=== PATIENT | female | born 1945 | race Caucasian/White ===

== ENCOUNTER 2021-10-17 18:07 | Observation (INO) ==
[2021-10-17] MEDS ORDERED: Ondansetron 4 MG/2 ML VIAL IVP ONE (18:38)
[2021-10-17] MEDS ORDERED: 0.9 % Sodium Chloride 1,000 ML IVC ONE (18:38)
[2021-10-17 18:58] LABS: Basophils % 0.4 %; Eosinophils # 0.1 K/mcL (0.0-0.6); Eosinophils % 0.7 %; Immature Granulocytes % 0.5 % (0-4); Lymphocytes # 1.5 K/mcL (0.6-4.6); Lymphocytes % 13.8 %; Mean Corpuscular HGB Conc 33.3 g/dL (31.6-35.5); Mean Corpuscular Hemoglobin 31.5 pg (28.0-33.3); Mean Corpuscular Volume 94.4 fL (83.0-100.0); Mean Platelet Volume 9.4 fL (9.4-12.4); Monocytes # 0.7 K/mcL (0.0-1.3); Monocytes % 6.8 %; Neutrophils # 8.3 K/mcL (1.6-8.9); Platelet Count 429 K/mcL (140-400); Red Cell Distribution Width 11.6 % (11.5-14.5); Segmented Neutrophils % 77.8 %; White Blood Count 10.7 K/mcL (4.3-11.1)
[2021-10-17 19:17] LABS: Potassium 3.4 mEq/L (3.5-5.1)
[2021-10-18] MEDS ORDERED: *HR* Promethazine 25 MG/ML VIAL IM PRN (00:11)
[2021-10-18] MEDS ORDERED: Ondansetron ODT 4 MG TAB.RAPDIS SL PRN (00:11)
[2021-10-18] MEDS ORDERED: 0.9 % Sodium Chloride 1,000 ML IVC SCH (00:15)
[2021-10-18] MEDS: traZODone 50 MG TABLET PO SCH ×2 (01:39→20:30)
[2021-10-18] MEDS ORDERED: CarBAMazepine XR (12 hr) 100 MG TAB PO SCH (09:00)
[2021-10-18] MEDS: Aspirin 81 MG TAB.CHEW PO SCH (09:51)
[2021-10-18] MEDS ORDERED: rOPINIRole 1 MG TABLET PO ONE (15:11)
[2021-10-18] MEDS: rOPINIRole 1 MG TABLET PO PRN (20:30)
[2021-10-19 08:07] LABS: Basophils # 0.1 K/mcL (0.0-0.2); Basophils % 0.9 %; Eosinophils # 0.3 K/mcL (0.0-0.6); Hematocrit 41.1 % (35.3-44.9); Hemoglobin 13.5 g/dL (11.5-15.4); Immature Granulocytes % 0.2 % (0-4); Lymphocytes # 1.5 K/mcL (0.6-4.6); Lymphocytes % 28.4 %; Mean Corpuscular HGB Conc 32.8 g/dL (31.6-35.5); Mean Corpuscular Hemoglobin 30.7 pg (28.0-33.3); Mean Corpuscular Volume 93.4 fL (83.0-100.0); Mean Platelet Volume 9.5 fL (9.4-12.4); Monocytes # 0.6 K/mcL (0.0-1.3); Monocytes % 10.7 %; Neutrophils # 2.9 K/mcL (1.6-8.9); Platelet Count 339 K/mcL (140-400); Red Cell Distribution Width 11.7 % (11.5-14.5); Segmented Neutrophils % 54.8 %; White Blood Count 5.4 K/mcL (4.3-11.1)
[2021-10-19 08:49] LABS: BUN/Creatinine Ratio 17 (6-26); Blood Urea Nitrogen 16 mg/dL (8-23); Calcium 8.5 mg/dL (8.6-10.3); Carbon Dioxide 30 mEq/L (23-29); Chloride 101 mEq/L (98-107); Glucose 123 mg/dL (70-105); Osmolality,Calculated 283 (280-300); Potassium 3.5 mEq/L (3.5-5.1); Sodium 135 mEq/L (136-145); eGFR For African Americans > 60 (> 60); eGFR For Non-African Americans 58 (> 60)
[2021-10-19] MEDS: Aspirin 81 MG TAB.CHEW PO SCH (09:20)
[2021-10-19] MEDS: traZODone 50 MG TABLET PO SCH (20:04)
[2021-10-19] MEDS: rOPINIRole 1 MG TABLET PO PRN (20:07)
[2021-10-20 00:01] VITALS: O2SAT 97
[2021-10-20] MEDS: Aspirin 81 MG TAB.CHEW PO SCH (08:38)
[2021-10-20 11:24] VITALS: BP 122/83; PULSE 73; RESP 16; TEMP 97.8
== END 2021-10-20 11:55 | disposition home or self-care (01) ==
LOC: EMEROOPIK 18:07 → INTOOBSV 20:25 → INPPIK 20:25
PROVIDERS: ADMIT Family Medicine; ATTEND Family Medicine